=== PATIENT | female | born 1970 | race African-American/Black ===

== ENCOUNTER → 2023-11-27 12:00 | Outpatient (REF) | payer OTHER, SELFPAY ==
--- NOTE | 2023-11-29 08:21 | PN.DIAED04 ---
Education Record
- Education Record
Class Attended: Class 2
[facility] Class Series Code: [id number]
Instructor: Registered Dietitian (Senait Samson, RODRÍGUEZN, LDN)
Class Length (mins): 120
== END ==
LOC: DES 12:00
PROVIDERS: ATTENDING PHYSICIAN Family Medicine
DX: E11.65 Type 2 diabetes mellitus with hyperglycemia (principal)
CPT/HCPCS: 99078

== ENCOUNTER → 2023-12-04 12:00 | Outpatient (REF) | payer OTHER, SELFPAY | LOC: DES 12:00 | PROVIDERS: ATTENDING PHYSICIAN Family Medicine | DX: E11.65 Type 2 diabetes mellitus with hyperglycemia (principal) | CPT/HCPCS: 99078 ==